=== PATIENT | female | born 1960 | race Caucasian/White ===

== ENCOUNTER 2017-03-31 09:50 | Inpatient (IN) | payer BC ==
[2017-03-02 13:00] VITALS: BMI 49.0
--- NOTE | 2017-03-02 13:33 | PAT Medication Instructions ---
Service Date March 02, 2017. Current Home Medication List Biotin (Biotin), 1 CAP PO QAM Calcium Carbonate (Tums), 1 TAB PO UD Calcium/Vitamin D (Os-Dimitri 500 Plus D), 1 TAB PO QAM Cyclosporine (Ophth) (Restasis), 1 DROP OP BID Estrogens, Conjugated (Premarin), 0.625 MG TOP 2XWK Ferrous Sulfate (Kp Ferrous Sulfate), 1 TAB PO QAM Levothyroxine Sodium (Levothyroxine Sodium), 1 TAB PO QAM Losartan Potassium (Cozaar), 100 MG PO HS Multivitamin (Multivitamin), 1 TAB PO QAM Naproxen (Aleve), 2 CAP PO TID Zolpidem Tartrate (Zolpidem Tartrate), 1 TAB PO HS Medication Instructions For Your Scheduled Surgery - Check with surgeon for instructions: Naproxen (Aleve), 2 CAP PO TID Estrogens, Conjugated (Premarin), 0.625 MG TOP 2XWK - Hold the following medications the morning of surgery: Multivitamin (Multivitamin), 1 TAB PO QAM Ferrous Sulfate (Kp Ferrous Sulfate), 1 TAB PO QAM Calcium Carbonate (Tums), 1 TAB PO UD Calcium/Vitamin D (Os-Dimitri 500 Plus D), 1 TAB PO QAM Biotin (Biotin), 1 CAP PO QAM - Take the following medications the morning of surgery with a sip of water: Levothyroxine Sodium (Levothyroxine Sodium), 1 TAB PO QAM Cyclosporine (Ophth) (Restasis), 1 DROP OP BID - Hold the following medications as scheduled the night before surgery: Losartan Potassium (Cozaar), 100 MG PO HS - Take the following medications as scheduled the night before surgery: Zolpidem Tartrate (Zolpidem Tartrate), 1 TAB PO HS Cyclosporine (Ophth) (Restasis), 1 DROP OP BID If you have any questions please call us at [phone] (Veronica Morrell PA-C) or [phone] or [phone]
[2017-03-02 14:03] LABS: BASO % 0.4 %; BASO ABS # 0.03 K/uL (0-0.2); COMPLETE YES; EOS % 5.6 %; HEMATOCRIT 36.3 % (37-47); LYMPH % 33.8 %; LYMPH ABS # 2.63 K/uL (1.2-3.4); MEAN CELL VOLUME 87.5 fL (80-100); MEAN CORPUSCULAR HEMOGLOBIN 28.7 pg (25-34); MEAN CORPUSCULAR HGB CONC 32.8 g/dl (32-36); MEAN PLATELET VOLUME 9.5 fL (7.4-10.4); MONO % 5.9 %; NEUT % 54.3 %; PLATELET COUNT 285 K/uL (130-400); RED BLOOD COUNT 4.15 M/uL (4.2-5.4); WHITE BLOOD COUNT 7.79 K/uL (4.8-10.8)
[2017-03-02 14:12] LABS: BLOOD UREA NITROGEN 19 mg/dl (7-18); BUN/CREATININE RATIO 28.5 (10-20); C-REACTIVE PROTEIN < 0.29 mg/dl (0-0.29); CALCIUM 9.1 mg/dl (8.5-10.1); CARBON DIOXIDE 31 mmol/L (21-32); CHLORIDE 107 mmol/L (98-107); CREATININE 0.68 mg/dl (0.60-1.20); GLUCOSE 116 mg/dl (70-99); POTASSIUM 3.8 mmol/L (3.5-5.1); SODIUM 144 mmol/L (136-145)
[2017-03-02 14:19] LABS: PROTHROMBIN TIME (PATIENT) 10.4 SECONDS (9.0-12.0)
--- NOTE | 2017-03-28 21:23 | HISTORY & PHYSICAL EXAMINATION ---
DATE OF ADMISSION: 03/31/2017 CHIEF COMPLAINT: Bilateral knee pain, right side greater than left. HISTORY OF PRESENT ILLNESS: A 57-year-old female from [place], who presents for treatment of her knees. She has a long history of bilateral knee pain and discomfort. Describes it has gotten worse over the past 5 years. She admits to extensive conservative treatment by Dr. Reeder as well as his PA. She had several steroid shots and viscosupplementation. They helped somewhat, but only for a couple of weeks at best. She has got more debilitated by her pain. She recently had back surgery which helped to some degree, but now limited by her knees. 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 She has tried to lose weight unsuccessfully. She is hoping to have surgical treatment. PAST MEDICAL HISTORY: 1. Hypertension. 2. Sleep apnea. 3. Chronic anemia with a negative workup. 4. Hypothyroidism. 5. Obesity with a BMI of 50. 6. Gastroesophageal reflux disease. 7. Hiatal hernia. PREVIOUS SURGERIES: Include: 1. Tonsillectomy. 2. Cholecystectomy. 3. Low back fusion done in November [address] Puentes. ALLERGIES: None. CURRENT MEDICINES: 1. Losartan 100 mg at bedtime. 2. Omeprazole 40 mg a day for GERD. 3. Zolpidem 10 mg a day for insomnia 4. Levothyroxine 150 mcg a day. 5. Restasis eyedrops. 6. Premarin 7. Multivitamin. 8. Ibuprofen. 9. Biotin supplements. SOCIAL HISTORY: A 57-year-old white female who presents from [place]. 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 She is . FAMILY HISTORY: Noncontributory. REVIEW OF SYSTEMS: Negative for diabetes. Denies any chest pain, shortness of breath. No history of DVT. She does have a history of some stasis changes in her legs which has improved since her back surgery. PHYSICAL EXAMINATION: GENERAL: Reveals an obese, middle-aged female, but looks in reasonably good health. HEENT: Benign. NECK: Supple, no lymphadenopathy. LUNGS: Clear to auscultation. HEART: Regular rate and rhythm. ABDOMEN: Soft, nontender, nondistended. EXTREMITIES: Grossly neurovascularly intact except as follows: Examination of both lower extremities reveals a fairly large soft tissue envelope. The knee alignment looks pretty anatomic bilaterally. She does have some stasis changes, left side more so than the right, not much edema. No active cellulitis. Range of motion of her knees is full extension to 120 degrees of flexion bilaterally. No pain with hip motion. X-RAYS: X-rays of both knees reveal advanced bilateral knee DJD. She has got complete loss of her medial joint space. The left side is a bit worse than the right. 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 ASSESSMENT: A 57-year-old white female with lifelong history of obesity and bilateral knee pain, degenerative joint disease, and failed conservative care. She would like to proceed with right knee replacement. Currently, unable to work due to her pain. PLAN: We are going to take her to the operating room and do a right total knee replacement. I told her I would do one knee at a time. She would like to proceed with this. The risk and benefits of the right total knee replacement were explained to the patient including but not limited to DVT, PE, , infection, neurological injury, vascular injury, bleeding problems, pain, limited range of motion, stiffness, failure to relieve symptoms, incomplete relief of symptoms, need for further surgery in the future, fracture, leg length inequality, nerve palsy, etc. The patient understands and desires to proceed. Informed consent was obtained. Due to her large size, we may put a stem in the tibia. I did talk to her about the need for revision surgery in the future at her young age and she is aware of that. I also talked about the increased risk of infection with her large size and obesity, also aware of that and she wants to proceed. As far as discharge plans, she is planning to be discharged to home using [facility] home health program. STACY
[~2017-03-31] VITALS: Ht 162.6 cm; Wt 130.2 kg
[2017-03-31] VITALS (7 sets, daily range): BP systolic 126–145; BP diastolic 73–86; PULSE 63–89; TEMP 36.3–36.7; O2SAT 92–99; Ht 162.6 cm; Wt 130.2 kg
[~2017-03-31 09:50] MED LIST: ACETAMINOPHEN 500 MG TAB PO SCH; ATROPINE SULFATE 0.1 MG/ML 5ML SYR IV PRN; BIOT1CAP3 PO; BUPIVACAINE 0.25% 30 ML VIAL ONE; BUPIVACAINE 0.5 % 5 MG/1 ML PF 10ML VIAL ONE; CALC500C3 PO; CALC500C70 PO; CEFAZOLIN 3000 MG/65 ML D5W 65 ML IV SCH; CYCL0.052 OP; EpHEDrine SULFATE INJ 50 MG/ML AMP IV PRN; FAMOTIDINE 20 MG TAB PO SCH; FENTANYL CITRATE INJ 50 MCG/1 ML 2 ML VIAL IV PRN; FERR1TAB13 PO; GABAPENTIN 300 MG CAP PO SCH; HYDROmorphone INJ 1 MG/ML SYR IV PRN; LABETALOL HCL IV 5 MG/ML 20ML IV PRN; LACTATED RINGER'S 1000ML 1,000 ML IV SCH; LACTATED RINGER'S 1000ML 500 ML IV ONE; LACTATED RINGER'S 1000ML IV SCH; LEVO150T9 PO; LOSA100T65 PO; MEPERIDINE HCL 25 MG/ML CARP IV PRN; METOCLOPRAMIDE HCL 10 MG TAB PO SCH; MULT-506 PO; NAPR1TAB9 PO; ONDANSETRON INJ 2 MG/ML 2 ML VIAL IV PRN; PRM625 TOP; SCOPOLAMINE 1.5 MG TDSY TD SCH; TRANEXAMIC ACID INJ 1,000 MG in SODIUM CHLORIDE 0.9% 100ML 100 ML IV SCH; ZOLP10TA6 PO
[2017-03-31] MEDS ORDERED: PRT/20 PO (10:42)
--- NOTE | 2017-03-31 11:04 | History & Physical Bridge Note ---
H&P Re-Evaluation Bridge Note: I have examined the patient, reviewed the History & Physical and in the interval since the performance of the History & Physical I have noted the following changes of clinical significance: No changes noted
[2017-03-31] MEDS ORDERED: ONDANSETRON INJ 2 MG/ML 2 ML VIAL ONE (11:49)
[2017-03-31] MEDS ORDERED: DEXAMETHASONE SOD INJ 4 MG/ML VIAL ONE (11:49)
[2017-03-31] MEDS ORDERED: LIDOCAINE HCL 2% 2 ML VIAL (20MG/ML) ONE (11:49)
[2017-03-31] MEDS ORDERED: PROPOFOL IV EMULSION 10 MG/ML 20 ML VIAL IV ONE (11:49)
[2017-03-31] MEDS ORDERED: MIDAZOLAM HCL 1 MG/ML 2ML VIAL ONE (11:49)
[2017-03-31] MEDS ORDERED: FENTANYL CITRATE INJ 50 MCG/1 ML 2 ML VIAL ONE ×2 (11:50→13:48)
[2017-03-31] MEDS ORDERED: SODIUM CHLORIDE 0.9% PF 50 ML VIAL ONE (12:49)
[2017-03-31] MEDS ORDERED: BUPIVACAINE/EPINEPHRINE 0.25% 1:200,000 30 ML VIAL ONE (12:49)
[2017-03-31] MEDS ORDERED: BACITRACIN 50000 UNIT VIAL ONE (12:50)
[2017-03-31] MEDS ORDERED: BUPIVACAINE LIPOSOME 1/3% 266 MG/20 ML VIAL INFIL ONE (12:50)
[2017-03-31] MEDS ORDERED: VANCOMYCIN HCL 1000MG/20ML VIAL ONE (13:26)
[2017-03-31] MEDS ORDERED: HYDROmorphone INJ 2 MG/ML SYR/VIAL ONE (13:41)
[2017-03-31] MEDS ORDERED: GLYCOPYRROLATE INJ 0.2 MG/ML VIAL ONE (15:20)
[2017-03-31] MEDS ORDERED: ROCURONIUM BROMIDE 10 MG/ML 5 ML VIAL ONE (15:20)
[2017-03-31] MEDS ORDERED: NEOSTIGMINE METHYLSULFATE 5 MG/5 ML SYR ONE (15:20)
--- NOTE | 2017-03-31 15:39 | [facility] Post Operative Brief Note ---
Immediate Operative Summary Operative Date March 31, 2017. Pre-Operative Diagnosis Right Knee Degenerative Joint Disease Post-Operative Diagnosis Same as preop Procedure(s) Performed Right Total Knee Arthroplasty Surgeon Dr. Correa Parts Order And Stock Clerk Surgeon(s) Hu Mcmanus PA-C Estimated Blood Loss 50mL Findings Right Knee DJD Fluids (cc crystalloids) 1550 cc Specimens A. Right Knee Bone and Tissue Drains None Anesthesia General Complication(s) None Disposition Recovery Room / PACU
[2017-03-31] MEDS ORDERED: MAGNESIUM HYDROXIDE SUSP 30 ML UDC PO PRN (15:45)
[2017-03-31] MEDS ORDERED: ONDANSETRON INJ 2 MG/ML 2 ML VIAL IV PRN (15:45)
[2017-03-31] MEDS ORDERED: SILVER SULFADIAZINE 1% CR 50 GM JAR EXT PRN (15:45)
[2017-03-31] MEDS ORDERED: METOCLOPRAMIDE HCL INJ 5 MG/ML 2 ML VIAL IV PRN (15:45)
[2017-03-31] MEDS ORDERED: MoRPHine SULFATE 2 MG/ML CARP IV PRN (15:45)
[2017-03-31] MEDS ORDERED: BISACODYL 10 MG SUPP PR PRN (15:45)
[2017-03-31] MEDS ORDERED: ZOLPIDEM TARTRATE 5 MG TAB PO PRN (15:45)
[2017-03-31] MEDS ORDERED: ALUMINUM/MAGNESIUM/SIMETH (MAALOX MAX) 30 ML UDC PO PRN (15:45)
[2017-03-31] MEDS: CHECK SCOPOLAMINE PATCH PLACEMENT SCH (16:00)
--- NOTE | 2017-03-31 16:12 | DIAGNOSTIC IMAGING REPORT ---
TWO VIEWS RIGHT KNEE CLINICAL HISTORY: Postoperative examination. FINDINGS: AP and crosstable lateral portable views of the right knee are obtained. A right knee arthroplasty is in near anatomic alignment. There is a long tibial stem. There has been undersurface remodeling of the patella. No acute fracture is seen. There are expected postoperative changes around the knee including skin clips soft tissue edema, and subcutaneous gas. IMPRESSION: Expected postoperative changes status post right knee arthroplasty. No acute fracture is seen. Electronically signed by: Channing Harper M.D. 03/31/2017 4:10 PM Dictated Date/Time: 03/31/2017 4:10 PM
--- NOTE | 2017-03-31 16:23 | Anesthesiology Progress Note ---
Anesthesia Post Op Note Date & Time March 31, 2017 at 16:23 Vital Signs Pain Intensity: 0 Vital Signs Past 12 Hours Date Time Temp Pulse Resp B/P Pulse Ox O2 Delivery O2 Flow Rate FiO2 03/31/17 16:15 79 14 153/87 100 Nasal Cannula 3 03/31/17 16:05 76 14 157/77 100 Mask 6 03/31/17 15:55 85 14 171/97 97 Mask 6 03/31/17 15:47 36.9 102 14 172/97 97 Mask 10 03/31/17 09:55 98 Room Air 03/31/17 09:55 36.7 77 16 145/82 Notes Mental Status: alert / awake / arousable, participated in evaluation Pt Amnestic to Procedure: Yes Nausea / Vomiting: adequately controlled Pain: adequately controlled Airway Patency, RR, SpO2: stable & adequate BP & HR: stable & adequate Hydration State: stable & adequate Anesthetic Complications: no major complications apparent
[2017-03-31] MEDS: OXYCODONE HCL IR 5 MG TAB (IMMEDIATE RELEASE) PO PRN ×2 (17:12→21:25)
[2017-03-31] MEDS ORDERED: CALCIUM CARBONATE 500 MG CHEWABLE PO PRN (18:00)
[2017-03-31] MEDS: D5W AND 1/2NSS + 20MEQ KCL 1,000 ML IV SCH (18:42)
[2017-03-31] MEDS: KETOROLAC TROMETHAMINE 30 MG/ML VIAL IV. SCH (19:17)
--- NOTE | 2017-03-31 19:33 | OPERATIVE REPORT ---
DATE OF OPERATION: 03/31/2017 SURGEON: Dr. Ismael Correa. [employer] OPERATOR: GABRIEL Dupont PREOPERATIVE DIAGNOSIS: Right knee degenerative joint disease. POSTOPERATIVE DIAGNOSIS: Same. PROCEDURE PERFORMED: Right cemented posterior stabilized total knee arthroplasty. COMPLICATIONS: None. ESTIMATED BLOOD LOSS: 50 mL. FLUID REPLACEMENT: 1550 mL crystalloid fluid replacement. TOURNIQUET TIME: 84 minutes at 350 mmHg. ANESTHESIA: Failed spinal with subsequent general anesthetic. SPECIMENS: Right knee sent for pathology. OPERATIVE INDICATIONS: The patient is a 57-year-old female who has had a long history of bilateral knee pain and discomfort, right side slightly worse than left. She has been through extensive conservative care without adequate relief. She has tried to lose weight, but unsuccessful. She is morbidly obese with a BMI of 50. The patient failed conservative treatment and elected to proceed with operative intervention. Of note, we did place a tibial stem in her tibia in order to maximize stability and decrease the risk of loosening due to her large size. OPERATIVE FINDINGS: Operative findings revealed advanced right knee DJD. She had extensive grade-4 changes in the medial femoral condyle and medial tibial plateau. She had some focal central areas of grade 4 changes in the lateral femoral condyle. She had a focal grade 3 changes of the patellofemoral joint. OPERATIVE IMPLANTS: Operative implants consisted of: 1. Biomet Vanguard size 67.5 right posterior stabilized femoral component. 2. Biomet size 71 tibial tray with a 13 x 80-mm stem with a 5-mm offset adapter and a small keel. 3. A 10-mm posterior stabilized polyethylene insert. 4. A 31 x 8 all poly patella. OPERATIVE PROCEDURE: The patient was taken to the operating room, identified and placed on the operating table in the supine position. Contact areas were appropriately padded. IV antibiotics were provided by anesthesia team. A spinal anesthetic was attempted, but failed in the holding area. A general anesthetic was implemented. A Lopez catheter was placed in sterile fashion. The right thigh tourniquet was then placed. The right leg was then prepped and draped in the usual sterile fashion. The right leg was elevated and exsanguinated with Esmarch and tourniquet was placed at 350 mmHg. An anterior approach to the right knee was then performed through a longitudinal incision centered over the patella. Sharp dissection was carried out through the subcutaneous tissues down to the level of the extensor mechanism. A medial parapatellar arthrotomy incision was made. Some subperiosteal dissection was carried out medially. The fat pad was resected from beneath the patellar tendon. Lateral patellofemoral ligament was released. The patella was subluxated laterally and the knee was flexed. The osteophytes were taken off the distal femur. The ACL and PCL were then released from the distal femur and the tibia subluxated anteriorly. We elected to place a tibial stem, so we used an intramedullary guide. The tibial eminence was resected with the use of a saw. I then used the entry drill to enter the canal and reamed up to a size 13 canal. We got excellent fit with this. The intramedullary cutting guide was then placed and a proximal tibial cut was made to take 2 mm of additional bone off the most deficient aspect of the medial tibial plateau. We then sized this tibia to a size 71. It was fairly tight, so I elected to cut the femur at this point to make a little more room. The distal femur was entered with a sharp drill bit. Intramedullary canal was suctioned. A right 5-degree valgus cutting guide was placed. Distal femoral cutting block was pinned in place. Distal femoral cut was made to take an additional 3 mm of bone off the distal femur. The femur was then sized to a size 67.5. We did downsize this slightly. The AP cutting block was pinned parallel to the epicondylar axis, which was 3 degrees of external rotation. The anterior cut, anterior chamfer, posterior cut, and posterior chamfer cuts were made. Box cutting guide was placed and adjusted slightly lateral and the box cut was made. The knee was flexed. The remnants of the medial and lateral menisci were excised. The osteophytes were taken off the posterior aspect of the femur. Attention was then drawn back to the tibia. I then placed a size 71 tibial tray and it looked appropriate for a 5-mm offset. So, we placed a 5-mm offset adapter. I then pinned the tibial tray in place. We then reamed for the adapter and punched for the small cruciate wing. The component was then assembled and placed in the tibia. A trial femur was placed. I then trialed the knee and a 10 mm insert fit most appropriately. Attention was then drawn to the patella. The patella was cleaned of all soft tissues. Patella thickness measured 22 mm in thickness and it was cut down to 12. It was sized to a size 31 patella. Lug holes were drilled for the 31 patella. Lateral osteophyte was removed. Patella button was placed. Knee was taken through range of motion and patella tracked nicely with no thumbs test. Attention was then drawn toward placement of the permanent components. All trial components were removed. I irrigated the wound extensively. We then trialed the tibial tray. It did not quite fit right. It was about a millimeter off on the rotation and so I did ream a little bit more with the hand reamers as well as the offset adapter reamer. We also elected to leave the cruciate wing to adjust itself and cemented the tibial tray as that seemed to fit most appropriately. The wound was extensively irrigated. A double batch of Palacos G cement was mixed with an additional gram of vancomycin due to her large size and intermittent history of some questionable cellulitis in her left leg. A size 67.5 right posterior stabilized femoral component, size 71 tibial tray with a 13 x 80 mm stem with a 5-mm offset and a small cruciate wing was then placed followed by a 31 x 8 all poly patella. All extraneous cement was removed. Knee was brought out into full extension until cement hardened. A final cement check was then performed. The pericapsular tissues were injected with 100 mL of a combination of 20 mL of Exparel, 30 mL of normal saline, and 50 mL of 0.25% Marcaine with epinephrine. I then let the tourniquet down for a total tourniquet time of 84 minutes. Hemostasis was assured with use of electrocautery. The wound was once again irrigated. The extensor mechanism was then closed with a combination of #1 PDS suture and #1 Vicryl suture in a [id number] fashion. The subcutaneous tissues were then closed with 2-0 Dexon suture in a buried interrupted fashion. Skin was closed skin jazzy. Leg was then cleaned and dried and a sterile dressing of Xeroform, 4 x 4, sterile cast padding and Jonah bandage were applied. The patient was then brought out of general anesthesia and transferred to the recovery room in stable condition. The patient tolerated the procedure well with no complications. All needle and sponge counts were correct at the end of the operation. I attest to the content of the Intraoperative Record and any orders documented therein. Any exceptions are noted below. MTDD
[2017-03-31] MEDS ORDERED: NURSING VERBAL MED ORDER ONE (20:30)
[2017-03-31] MEDS ORDERED: TRANEXAMIC ACID INJ 1,000 MG in SODIUM CHLORIDE 0.9% 100ML 100 ML IV SCH (21:00)
[2017-03-31] MEDS: ASPIRIN 325 MG ECTAB PO SCH (21:24)
[2017-03-31] MEDS: DOCUSATE SODIUM 100 MG CAP PO SCH (21:24)
[2017-03-31] MEDS: ZOLPIDEM TARTRATE 10 MG TAB PO SCH (21:25)
[2017-03-31] MEDS: TAPENTADOL ER 50 MG TABCR PO SCH (21:25)
[2017-03-31] MEDS: CEFAZOLIN IV 3,000 MG in DEXTROSE 5% 50ML 50 ML IV SCH (21:29)
[2017-03-31] MEDS ORDERED: ACETAMINOPHEN 500 MG TAB PO SCH (22:00)
[2017-04-01] MEDS: CHECK SCOPOLAMINE PATCH PLACEMENT SCH ×4 (00:12→23:32)
[2017-04-01] MEDS: KETOROLAC TROMETHAMINE 30 MG/ML VIAL IV. SCH ×5 (00:12→23:49)
[2017-04-01] MEDS: D5W AND 1/2NSS + 20MEQ KCL 1,000 ML IV SCH ×3 (00:39→13:23)
[2017-04-01 03:24] VITALS: BP 124/83; PULSE 84; TEMP 37; O2SAT 93
[2017-04-01] MEDS: CEFAZOLIN IV 3,000 MG in DEXTROSE 5% 50ML 50 ML IV SCH (05:55)
[2017-04-01] MEDS: LEVOTHYROXINE 150 MCG TAB PO SCH (05:55)
[2017-04-01 06:07] LABS: HEMATOCRIT 33.6 % (37-47); MEAN CELL VOLUME 87.5 fL (80-100); MEAN CORPUSCULAR HEMOGLOBIN 28.6 pg (25-34); MEAN CORPUSCULAR HGB CONC 32.7 g/dl (32-36); MEAN PLATELET VOLUME 9.7 fL (7.4-10.4); PLATELET COUNT 275 K/uL (130-400); RED BLOOD COUNT 3.84 M/uL (4.2-5.4); WHITE BLOOD COUNT 10.85 K/uL (4.8-10.8)
[2017-04-01 06:42] LABS: BUN/CREATININE RATIO 14.7 (10-20); CALCIUM 7.8 mg/dl (8.5-10.1); CREATININE 0.69 mg/dl (0.60-1.20); POTASSIUM 4.5 mmol/L (3.5-5.1)
[2017-04-01 07:49] VITALS: BP 160/90; PULSE 0; PULSE 70; TEMP 36.7; O2SAT 96
[2017-04-01] MEDS: TAPENTADOL ER 50 MG TABCR PO SCH ×2 (08:07→20:59)
[2017-04-01] MEDS: MULTIVITAMIN TAB PO SCH (08:08)
[2017-04-01] MEDS: PANTOprazole SOD 40 MG TAB PO SCH (08:08)
[2017-04-01] MEDS: OXYCODONE HCL IR 5 MG TAB (IMMEDIATE RELEASE) PO PRN ×2 (08:08→17:48)
[2017-04-01] MEDS: CALCIUM 600MG + VIT D 400 IU TAB PO SCH (08:08)
[2017-04-01] MEDS: FERROUS GLUCONATE 324 MG TAB PO SCH ×3 (08:09→17:48)
[2017-04-01] MEDS: ASPIRIN 325 MG ECTAB PO SCH ×2 (08:09→20:59)
[2017-04-01] MEDS: DOCUSATE SODIUM 100 MG CAP PO SCH ×2 (08:09→20:59)
[2017-04-01] MEDS ORDERED: ASPEC325 PO (08:23)
[2017-04-01] MEDS ORDERED: RXC5 PO (08:23)
[2017-04-01] MEDS ORDERED: MORP15TA19 PO (08:23)
[2017-04-01] MEDS ORDERED: ACET-1138 PO (08:23)
--- NOTE | 2017-04-01 08:25 | Discharge Instructions ---
Discharge Instructions Date of Service April 01, 2017. Admission Reason for Admission: Right Knee Degenerative Joint Disease Discharge Discharge Diagnosis / Problem: Right Knee Replacement Discharge Goals Goal(s): Decrease discomfort, Improve function, Increase independence, Improve disease control Activity Recommendations Activity Limitations: per Instructions/Follow-up section Weightbearing Status: Right weightbearing . Instructions / Follow-Up Instructions / Follow-Up ACTIVITY RECOMMENDATIONS: Physical Therapy: * You will go to physical therapy three times each week for four to six weeks after your surgery in order to regain your knee range of motion and to retrain your knee to work properly. * It is just as important to make sure you are getting your knee perfectly straight as it is to regain your knee bend. * Taking a pain pill an hour before therapy can help you have a more productive and comfortable therapy session. Home Exercise: * You were shown a series of exercises (heel props, heel slides, etc.) in the hospital. Do these exercises three to four times each day including the exercises you were shown in physical therapy. Walking: * Get up and walk several times each day. For the first four weeks, try not to stand or walk for more than one hour at a time. If you do stand or walk for more than one hour, you will not hurt anything, but your knee and leg will likely swell. * As you feel comfortable, you may change from the walker or crutches to a cane and then to independent walking. MEDICATIONS: New Medicine: * You will likely be taking one or more of these medications: 1. MS Contin - A long-acting pain medication. Take 1 tablet twice a day for the first ten days to decrease your baseline level of pain. 2. Oxycodone - A quick and shorter-acting pain medication. Take one to two tablets every four to six hours to lessen your pain. 3. Aspirin - Thins your blood to lessen the chance of forming a blood clot. * The most common side effects of pain medicine and iron are nausea and constipation. If nausea or constipation is too much of a problem or if you have any questions about your new medicines or doses, call [facility] at . We will try to help you manage these issues. VERY IMPORTANT TO READ AND REVIEW" Pain: * The immediate post-operative period after knee replacement surgery is often quite painful. * You are given a prescription for pain medicine. You should take it, as directed, when you need it, especially before physical therapy and before going to bed. Pain that interferes with sleep is very common and can last several months. * You will likely need pain medicine for the first four to six weeks. It will not stop all of the pain. The pain will lessen and as you feel better, you may change to milder pain medicine such as Tylenol. * The most common side effects of pain medicine are nausea and constipation, so don't take more than you need. SPECIAL CARE INSTRUCTIONS: TEDs/Elastic Stockings: * The white elastic stockings help limit swelling and prevent blood clots from forming in your legs. The more you wear them, the more they work. * Wear them for six weeks after knee replacement surgery and four weeks after partial knee replacement. Prevention of Infection: * Take antibiotics one hour before any dental cleaning, dental work, urological procedure, gastrointestinal procedure or any invasive surgery in order to prevent your new joint from getting infected. * You may get the antibiotics from the doctor performing the procedure or you may call our office at before and we will call in a prescription to the pharmacy of your choice. Things to Watch For: * Drainage from the incision site that occurs more than one week after your surgery. * Severely increased knee/leg pain or swelling. * Increased redness at the incision site. * Fever above 102 degrees Fahrenheit. * Unusual chest pain or shortness of breath. * Unusual pain or burning with urination. Call [facility] at with any of the above problems or if you have any questions about your medicines or recovery. FOLLOW UP VISIT: Make an appointment to see your doctor for approximately two weeks after surgery for a progress check and staple removal by calling the office at . Current Hospital Diet Patient's current hospital diet: Regular Diet Discharge Diet Recommended Diet: Regular Diet Procedures Procedures Performed: Right Total Knee Arthroplasty Pending Studies Studies pending at discharge: no Medical Emergencies . Who to Call and When: Medical Emergencies: If at any time you feel your situation is an emergency, please call [phone] immediately. . Non-Emergent Contact Non-Emergency issues call your: Surgeon . "Provider Documentation" section prepared by Ismael Correa. . VTE Core Measure Inpt VTE Proph given/why not?: Other Anticoagulation, T.E.D. Stockings, SCD's
--- NOTE | 2017-04-01 08:28 | PROGRESS NOTE ---
DATE: 04/01/2017 SUBJECTIVE: A 57-year-old white female postop day 1 from right knee replacement. She is doing well. Pain is controlled. She has been up and walking around some. Denies any chest pain or shortness of breath. Not feeling dizzy or lightheaded. OBJECTIVE: VITAL SIGNS: Temperature 36.7. Vital signs stable. PHYSICAL EXAMINATION: GENERAL: Reveals a pleasant, middle-aged female. She is lying in bed and looks comfortable. LUNGS: Clear to auscultation. HEART: Regular rate and rhythm. ABDOMEN: Soft, nontender, nondistended. EXTREMITIES: Grossly neurovascularly intact except as follows: Examination of the right leg reveals the leg to be well aligned. She can dorsiflex and plantarflex her foot appropriately. She is neurologically intact. Dressing is clean, dry and intact. LABORATORY DATA: Hemoglobin 11.0, hematocrit 33.6, white cell count 10.85. Electrolytes are stable. ASSESSMENT: A 57-year-old white female postop day 1 from right knee replacement, doing pretty well. Pain is controlled. She is neurologically intact. PLAN: 1. DVT prophylaxis including thigh-high TEDs, SCDs, and aspirin twice a day. 2. PT/OT. Weightbearing as tolerated. Right total knee protocol. 3. Pain control, doing pretty well with current pain regimen. 4. Disposition: She is hoping to be discharged to home with some home health once adequately recovered.
[2017-04-01 08:51] VITALS: O2SAT 96
[2017-04-01] MEDS ORDERED: MULTIVITAMIN TAB PO SCH (09:00)
[2017-04-01] MEDS ORDERED: NON-FORMULARY MEDICATION (Ferrous Sulfate (Kp Ferrous Sulfate) 1 TAB) PO SCH (09:00)
[2017-04-01] MEDS ORDERED: NON-FORMULARY MEDICATION (Biotin 1 CAP) PO SCH (09:00)
[2017-04-01] MEDS ORDERED: NON-FORMULARY MEDICATION (Pantoprazole (Protonix) 20 MG) PO SCH (09:00)
[2017-04-01 11:55] VITALS: BP 172/96; PULSE 82; TEMP 37.6; O2SAT 93
[2017-04-01] MEDS: ACETAMINOPHEN 500 MG TAB PO SCH ×2 (13:23→21:58)
[2017-04-01 15:30] VITALS: BP 131/84; PULSE 91; TEMP 37.6; O2SAT 97
[2017-04-01] MEDS: ZOLPIDEM TARTRATE 10 MG TAB PO SCH (20:59)
[2017-04-01] MEDS ORDERED: LOSARTAN POTASSIUM 50 MG TAB PO SCH (21:00)
[2017-04-01 23:13] VITALS: BP 138/86; PULSE 97; TEMP 36.7; O2SAT 91
[2017-04-02] MEDS: LEVOTHYROXINE 150 MCG TAB PO SCH (05:40)
[2017-04-02] MEDS: KETOROLAC TROMETHAMINE 30 MG/ML VIAL IV. SCH (05:41)
[2017-04-02] MEDS: ACETAMINOPHEN 500 MG TAB PO SCH (05:41)
[2017-04-02 06:40] VITALS: BP 130/84; PULSE 87; TEMP 36.7; O2SAT 94
[2017-04-02] MEDS: TAPENTADOL ER 50 MG TABCR PO SCH (07:18)
[2017-04-02] MEDS: ASPIRIN 325 MG ECTAB PO SCH (07:19)
[2017-04-02] MEDS: FERROUS GLUCONATE 324 MG TAB PO SCH (07:19)
[2017-04-02] MEDS: DOCUSATE SODIUM 100 MG CAP PO SCH (07:19)
[2017-04-02] MEDS: OXYCODONE HCL IR 5 MG TAB (IMMEDIATE RELEASE) PO PRN (07:19)
[2017-04-02] MEDS: MULTIVITAMIN TAB PO SCH (07:19)
[2017-04-02] MEDS: CALCIUM 600MG + VIT D 400 IU TAB PO SCH (07:20)
[2017-04-02] MEDS: PANTOprazole SOD 40 MG TAB PO SCH (07:20)
--- NOTE | 2017-04-02 07:37 | PROGRESS NOTE ---
DATE: 04/02/2017 SUBJECTIVE: 57-year-old white female postop day 2 from right knee replacement. She is doing well. Pain is controlled. Denies any chest pain or shortness of breath. Not feeling dizzy or lightheaded. OBJECTIVE: VITAL SIGNS: Temperature 36.7. Vital signs stable. PHYSICAL EXAMINATION: GENERAL: Reveals a healthy, pleasant middle-aged female. She is sitting up in bed and looks pretty comfortable. She is awake, alert and oriented. EXTREMITIES: Examination of the right leg reveals the leg to be well aligned. Dressing is clean, dry and intact. She can dorsiflex and plantarflex her foot appropriately. She is neurologically intact. ASSESSMENT: 57-year-old white female postop day 2 from right knee replacement, doing well. Pain is controlled. PLAN: 1. DVT prophylaxis including thigh-high TEDS, SCDs, and aspirin twice a day. 2. PT and OT. Weight-bearing as tolerated. Right total knee protocol. 3. Pain control. Doing well with current pain regimen. 4. Disposition: Plan to discharge to home with some home health after therapy today.
[2017-04-02 08:02] VITALS: BP 132/88; PULSE 88; TEMP 37; O2SAT 96
[2017-04-02 09:55] VITALS: BP 132/88; PULSE 88; TEMP 37; O2SAT 96
[2017-04-02 10:12] VITALS: O2SAT 96
--- NOTE | 2017-04-10 14:12 | DISCHARGE SUMMARY ---
ADMITTING PHYSICIAN AND SURGEON: Dr. Correa. ADMITTING DIAGNOSIS: Right knee degenerative joint disease. SURGERY PERFORMED: Right total knee arthroplasty. SECONDARY DIAGNOSES: Include hypertension, sleep apnea, chronic anemia, hypothyroidism, obesity, gastroesophageal reflux disease, and hiatal hernia. CONSULTS: None obtained. HISTORY AND PHYSICAL EXAMINATION: Well documented in the patient's chart. HOSPITAL COURSE: The patient was admitted on 03/31/2017 and underwent total knee arthroplasty. She tolerated the procedure well. There were no complications. She was transferred to PACU postoperatively and later to the orthopedic floor for further care. She was given Ancef for antibiotic prophylaxis and GIAN stockings, SCDs and aspirin for DVT prophylaxis. Hemoglobin, hematocrit and vital signs were monitored during her hospital stay and remained stable. She developed some mild postoperative anemia with a hemoglobin down to 11. She did not require any blood transfusions. There were no complications. By postoperative day 2, she was tolerating a general diet. Pain was controlled with oral pain medicine. She was participating in physical therapy and had no signs or symptoms of deep vein thrombosis. On postoperative day 2, she was discharged home in good condition and set up with home health services. She was given printed discharge instructions including new prescriptions for extra strength Tylenol, aspirin 325 mg b.i.d., MS Contin and oxycodone. Continue home medications, continue physical therapy, weightbearing as tolerated, and GIAN stockings. Follow up in 10-12 days or sooner if there are any problems or concerns.
[2017-07-13] MEDS ORDERED: HYDR-4079 PO (15:21)
[2017-07-13] MEDS ORDERED: SENNA PO (15:22)
[2017-07-13] MEDS ORDERED: BACL10TA PO (15:22)
[2017-09-01] MEDS ORDERED: DOCU-94 PO (09:21)
[2017-09-02] MEDS ORDERED: RXC5 PO (11:32)
[2017-09-02] MEDS ORDERED: FRRG PO (11:32)
[2017-09-02] MEDS ORDERED: MORP-157 PO (11:32)
[2017-09-02] MEDS ORDERED: ASPEC325 PO (11:32)
[2017-09-02] MEDS ORDERED: ACET-24 PO (11:32)
== END 2017-04-02 10:36 | disposition home health service (06) | DRG 470 ==
LOC: ENRESERVDT → ENRESERVTM → C.ACU 09:50 → C.3E 15:44
PROVIDERS: ADMIT Orthopaedic Surgery Sports Medicine; ATTEND Orthopaedic Surgery Sports Medicine
PROC: 0SRC0J9 Replacement of Right Knee Joint with Synthetic Substitute, Cemented, Open Approach (ICD-10-PCS; principal; 2017-03-31 12:55)
DX: M17.0 Bilateral primary osteoarthritis of knee (principal); Z68.43 Body mass index [BMI] 50.0-59.9, adult; I10 Essential (primary) hypertension; K21.9 Gastro-esophageal reflux disease without esophagitis; D64.9 Anemia, unspecified; G47.00 Insomnia, unspecified; G47.33 Obstructive sleep apnea (adult) (pediatric); E66.01 Morbid (severe) obesity due to excess calories; Z98.1 Arthrodesis status; Z79.890 Hormone replacement therapy; Z79.899 Other long term (current) drug therapy